=== PATIENT | male | born 1995 | race Caucasian/White ===

== ENCOUNTER 2021-08-02 23:01 | Emergency (ER) | payer OTHER ==
[2021-08-03] MEDS ORDERED: VIBRAMYCIN100 MG PO (03:42)
[2021-08-04 07:12] LABS: HBSAG SCREEN Negative (Negative); HEP A AB, IGM Negative (Negative); HEP B CORE AB, IGM Negative (Negative); HEP C VIRUS AB <0.1 (0.0-0.9)
[2021-08-04 08:16] LABS: HIV AB/P24 AG SCREEN Non Reactive (Non Reactive); RPR Non Reactive (Non Reactive)
[2021-08-04 22:07] LABS: CHLAMYDIA TRACHOMATIS, NAA Negative (Negative); NEISSERIA GONORRHOEAE, NAA Positive (Negative)
[2021-08-05 03:08] LABS: CHLAMYDIA TRACHOMATIS, NAA Negative (Negative); NEISSERIA GONORRHOEAE, NAA Negative (Negative)
== END 2021-08-03 04:09 | disposition home or self-care (01) ==
LOC: ER1 23:01
PROVIDERS: Family Medicine; Nurse Practitioner
DX: A64 Unspecified sexually transmitted disease (principal); F17.200 Nicotine dependence, unspecified, uncomplicated
CPT/HCPCS: 80074; 86592; 86694; 87389; 96372; 99283; J0696; J2001; J2060; J7120